=== PATIENT | male | born 2000 | race Caucasian/White ===

== ENCOUNTER 2024-05-06 12:05 | Emergency (ER) | payer BC, SELFPAY ==
--- NOTE | ~2024-05-06 | US_ITS ---
EXAMINATION: US venous doppler [facility] DATE: 05/06/2024 13:22 INDICATION: Left lower limb pain, swelling and erythema TECHNIQUE: Grayscale ultrasound images without and with compression and Doppler ultrasound images of the left lower extremity veins were obtained. COMPARISON: None. FINDINGS: The visualized portions of left common femoral vein, profunda (deep) femoral vein, femoral vein, popl iteal vein, peroneal veins, posterior tibial veins, gastrocnemius vein and greater saphenous vein out flow are patent. IMPRESSION: 1. No deep venous thrombosis in the left lower limb. Reviewed, dictated and finalized at location [facility]
[2024-05-06 12:11] VITALS: BP 135/63; PULSE 65; RESP 20; TEMP 36.3; O2SAT 100
--- NOTE | 2024-05-06 13:40 | ED_ITS ---
HPI - General Adult General Chief complaint: Extremity Problem,Nontraumatic Stated complaint: Left leg pain, Time Seen by Provider: 05/06/24 13:11 History of Present Illness HPI narrative: This is a 23-year-old male presenting with left calf pain. Pain started last week. Was worse with movement. Patient was concerned that he has a DVT because he has varicose veins in his other leg and his family has a history of DVTs. Patient taking Motrin Tylenol with some improvement. No traumatic events. No fevers chills nausea vomiting or diarrhea. He does have a small area of redness on the inside of his calf that he attributes to a bug bite. Related Data Allergies Allergy/AdvReac Type Severity Reaction Status Date / Time No Known Allergies Allergy Verified 05/06/24 12:06 Exam Narrative: APPEARANCE: No apparent distress. Head: atraumatic. EYES: EOMI, NOSE: Atraumatic NECK: Trachea midline RESPIRATORY: No increased rate of breathing, clear to auscultation CARDIOVASCULAR: RRR, no peripheral edema ABDOMINAL: Non-distended MUSCULOSKELETAl: focal exam left lower extremity revealed tenderness along calf, intact pulses, warm foot, soft compartments. NEURO: Alert. Moving 4/4 extremities SKIN:: Small erythematous lesion on the inside of the left calf no cellulitic changes, no areas of fluctuance PSYCHIATRIC: Normal affect Course Vital Signs Vital signs: Vital Signs Temperature 97.3 F L 05/06/24 12:11 Pulse Rate 65 05/06/24 12:11 Respiratory Rate 20 05/06/24 12:11 Blood Pressure 135/63 05/06/24 12:11 Pulse Oximetry 100 05/06/24 12:11 Oxygen Delivery Room Air 05/06/24 12:11 Temperature 97.3 F L 05/06/24 12:11 Pulse Rate 65 05/06/24 12:11 Respiratory Rate 20 05/06/24 12:11 Blood Pressure 135/63 05/06/24 12:11 Pulse Oximetry 100 05/06/24 12:11 Oxygen Delivery Room Air 05/06/24 12:11 Medical Decision Making [facility] Narrative Medical decision making narrative: -Course: 23-year-old male presenting with calf pain. He was concerned about a DVT but the venous ultrasound was negative. Suspect muscle strain. Patient discharged with NSAIDs and muscle relaxers. Patient will be given primary care follow-up. Given return precautions for severe pain, weakness to the leg or signs of infection. patient has a small area of erythema on the inside of his calf that does not seem to correspond to where his tenderness is. Appears to be an insect bite. Instructed the patient to continue to monitor. -DDX includes but is not limited to: Muscle strain, DVT, cellulitis, -Independent interpretation of studies: labs and imaging reviewed -Shared decision making / Disposition:discharged. -RX Motrin Tylenol Robaxin Vital Signs Vital Signs: Vital Signs Temperature 97.3 F L 05/06/24 12:11 Pulse Rate 65 05/06/24 12:11 Respiratory Rate 20 05/06/24 12:11 Blood Pressure 135/63 05/06/24 12:11 Pulse Oximetry 100 05/06/24 12:11 Oxygen Delivery Room Air 05/06/24 12:11 Temperature 97.3 F L 05/06/24 12:11 Pulse Rate 65 05/06/24 12:11 Respiratory Rate 20 05/06/24 12:11 Blood Pressure 135/63 05/06/24 12:11 Pulse Oximetry 100 05/06/24 12:11 Oxygen Delivery Room Air 05/06/24 12:11 Discharge Plan Discharge Clinical Impression: Calf pain Patient Disposition: Home, Self-Care Condition: Stable Instructions: Antibiotic Form, Leg Pain (ED) Additional Instructions: please take Motrin Tylenol Robaxin for pain control. Please follow-up with your primary care physician for further management. Please return if develops severe pain, increasing redness or swelling, or signs of infection like fevers and chills. Prescriptions: New ibuprofen 800 mg tablet 800 mg PO TID PRN (Reason: pain) 7 Days Qty: 21 0RF acetaminophen 500 mg tablet 1,000 mg PO TID PRN (Reason: dejan) 7 Days Qty: 42 0RF methocarbamol 750 mg tablet 1,500 mg PO TID Qty: 35 0RF Follow-up/Referrals: Parviz Guevara MD [Physician] - 1 Week UNKNOWN,DOCTOR [Primary Care Provider] -
[2024-05-06 14:22] VITALS: BP 123/74; PULSE 71; RESP 16; TEMP 36.6; O2SAT 97
== END 2024-05-06 14:24 | disposition home or self-care (01) ==
PROVIDERS: Emergency Provider Emergency Medicine
DX: M79.662 Pain in left lower leg (principal); Z86.718 Personal history of other venous thrombosis and embolism
CPT/HCPCS: 93971; 99284